=== PATIENT | male | born 2000 | race Caucasian/White ===

== ENCOUNTER → 2019-04-07 | Day surgery (SDC) | payer OTHER ==
[~2019-04-07] MED LIST: CYCLOPENTOLATE HCL 1% OPTH SOLN 2ML BTL ONE; FENTANYL CITRATE/PF 100MCG/2 ML INJ ONE; FLUOXETINE HCL20 MG PO; KETAMINE HCL INJ 50 MG/ML 10 ML VIAL ONE; LIDOCAINE HCL 2% LOCAL INJ 5 ML SDV VIAL INJ ONE; LOSARTAN POTASS25 MG PO; MIDAZOLAM HCL 2 MG/2 ML VIAL ONE; PEPCID20 MG PO; PROPOFOL IV EMULSION 10 MG/ML 50 ML VIAL ONE
--- OUTSIDE RECORDS SUMMARY | 2019-04-07 13:14 | XMS REPORT ---
Author Author [facility] Address Unknown Phone Unavailable Care Team Providers Care Child Adolescent Psychiatrist Name Role Phone Unavailable Unavailable Payers Payer Name Policy Type Policy Number Effective Date Expiration Date Problems This patient has no known problems. Allergies, Adverse Reactions, Alerts Allergy Name Allergy Type Status Severity Reaction(s) Onset Date Inactive Date Treating Clinician Comments No Known Allergies DA Active U 2018-06-28 00:00:00 No Known Contrast Allergies DA Active U 2003-11-20 00:00:00 No Known Drug Allergies DA Active U 2003-11-20 00:00:00 No Known Food Allergies DA Active U 2003-11-20 00:00:00 No Known Other Allergies DA Active U 2003-11-20 00:00:00 No Known Drug Intolerances DA Active U 2001-12-23 00:00:00 Medications This patient has no known medications. Results Test Description Test Time Test Comments Text Results Atomic Results Result Comments BASIC METABOLIC PANEL 2019-03-13 21:55:00 SODIUM (test code=NA) 136 mmol/L 136-145 POTASSIUM (test code=K) 3.7 mmol/L 3.5-5.1 CHLORIDE (test code=CL) 99 mmol/L 101-109 CARBON DIOXIDE (test code=CO2) 24.9 mmol/L 21-32 ANION GAP (test code=GAP) 16 mmol/L 10-20 GLUCOSE (test code=GLU) 89 mg/dL 74-106 BLOOD UREA NITROGEN (test code=BUN) 10 mg/dL 3-21 GLOMERULAR FILTRATION RATE (test code=GFR) > 60 mL/min >=60 Estimated GFR by using Modified MDRD formula.Chronic kidney disease is defined as either kidney damageor GFR <60 mL/min/1.73 m2 for >3 months. CREATININE (test code=CREAT) 0.73 mg/dL 0.55-1.3 BUN/CREATININE RATIO (test code=BUN/CREA) 13.7 10-20 CALCIUM (test code=CA) 8.6 mg/dL 8.4-10.2 [id number] 21:55:00* Test Item Value Reference Range Comments TROPONIN-I (test code=TROPI) <0.015 ng/mL 0.00-0.056 BASIC METABOLIC [id number] 21:46:00* Test Item Value Reference Range Comments SODIUM (test code=NA) 136 mmol/L 136-145 POTASSIUM (test code=K) 3.7 mmol/L 3.5-5.1 CHLORIDE (test code=CL) 99 mmol/L 101-109 CARBON DIOXIDE (test code=CO2) 24.9 mmol/L 21-32 ANION GAP (test code=GAP) 16 mmol/L 10-20 GLUCOSE (test code=GLU) 89 mg/dL 74-106 BLOOD UREA NITROGEN (test code=BUN) 10 mg/dL 3-21 GLOMERULAR FILTRATION RATE (test code=GFR) > 60 mL/min >=60 Estimated GFR by using Modified MDRD formula.Chronic kidney disease is defined as either kidney damageor GFR <60 mL/min/1.73 m2 for >3 months. CREATININE (test code=CREAT) 0.73 mg/dL 0.55-1.3 BUN/CREATININE RATIO (test code=BUN/CREA) 13.7 10-20 CALCIUM (test code=CA) 8.6 mg/dL 8.4-10.2 [id number] 21:46:00* Test Item Value Reference Range Comments TROPONIN-I (test code=TROPI) ng/mL 0-0.045 CBC W/O [id number] 21:43:00* Test Item Value Reference Range Comments WHITE BLOOD CELL (test code=WBC) 7.4 K/mm3 4.5-12.5 RED BLOOD CELL (test code=RBC) 5.13 mill/mm3 4.0-5.8 HEMOGLOBIN (test code=HGB) 15.5 gram/dL 13.0-17.5 HEMATOCRIT (test code=HCT) 45.5 % 42.0-52.0 MEAN CELL VOLUME (test code=MCV) 88.7 fL 80-98 MEAN CELL HGB (test code=MCH) 30.2 picogram 27.0-33.0 MEAN CELL HGB CONCETRATION (test code=MCHC) 34.1 gram/dL 33.0-36.0 RED CELL DISTRIBUTION WIDTH (test code=RDW) 11.7 % 11.6-16.2 RED CELL DISTRIBUTION WIDTH SD (test code=RDW-SD) 38.7 fL 37.0-51.0 PLATELET COUNT (test code=PLT) 278 K/mm3 150-450 MEAN PLATELET VOLUME (test code=MPV) 9.0 fL 6.7-11.0 - XR CHEST 1 [id number] 21:38:00 Name: SEAN ARIAS [facility] : 2000 Age/S:18 /M [address] [facility] [place] Unit#:[id number] [place]: [place] [address] Phys: Vick Johnson MD Dis Date: PHONE #: [phone] Status: REG FAX #: [phone] Exam Date: 03/13/2019 Reason: Chest pain EXAMS: CPT CODE: [id number] XR CHEST 1 V [id number] REASON FOR EXAM: Chest pain EXAM ORDER DATE: 03/13/2019 9:10 PM Ordering Lucía: Vick Johnson MD PROCEDURE: - XR CHEST 1 V COMPARISON: FINDINGS: Portable AP frontal view of the chest obtained at 9:17 PM shows clear lungs without evidence of consolidation. There is no evidence of effusion. The heart size is within normal limits. Pulmonary vasculatures are unremarkable. IMPRESSION: Mild hyperinflated lungs at 2138 Reported and signed by: Bobby Camara M.D. CC: Vick Johnson MD Technologist: RENETTA ARMAS RT(R),RDMS,CT Trnscrpt Data: 03/13/2019 (2138) [id number] Orig Print D/T: S: 03/13/2019 (2140) PAGE 1 Signed Report URINALYSIS [id number] 20:25:00* Test Item Value Reference Range Comments UA COLOR (test code=COLU) YELLOW YELLOW UA APPEARANCE (test code=APPU) CLEAR CLEAR UA GLUCOSE DIPSTICK (test code=DGLUU) norm mg/dL NEGATIVE UA BILIRUBIN DIPSTICK (test code=BILU) NEGATIVE mg/dL NEGATIVE UA KETONE DIPSTICK (test code=KETU) neg mg/dL NEGATIVE UA SPECIFIC GRAVITY (test code=SGU) 1.025 1.001-1.035 UA BLOOD DIPSTICK (test code=SEA) 25 (1+) Joshua/uL NEGATIVE UA PH DIPSTICK (test code=TAYLOR) 6.0 5.0-8.0 UA PROTEIN DIPSTICK (test code=PROU) 15 (TRACE) mg/dL Neg-15 UA UROBILINIOGEN DIPSTICK (test code=URO) 1 mg/dL 0.0-0.2 UA NITRITE DIPSTICK (test code=JORDIN) NEGATIVE NEGATIVE UA LEUKOCYTE ESTERASE DIPSTICK (test code=LEUU) 25 Jeremiah/uL (Trace) uL NEGATIVE UA WBC (test code=WBCU) 11-20 per HPF 0-5 UA RBC (test code=RBCU) 3-5 per HPF 0-5 UA EPITHELIAL CELLS (test code=EPIU) Rare (0-1/hpf) per HPF Few UA BACTERIA (test code=BACU) FEW per HPF NONE Urine Source? Clean CatchDRUGS OF ABUSE SCREEN [id number] 20:25:00* Test Item Value Reference Range Comments URN COCAINE (test code=COCAURN) NEGATIVE NEGATIVE URN CANNABINOIDS (test code=CANNABURN) NEGATIVE NEGATIVE URN AMPHETAMINE (test code=AMPHETURN) NEGATIVE NEGATIVE URN BARBITURATE (test code=BARBITURN) NEGATIVE NEGATIVE URN BENZODIAZEPINE (test code=BENZOURN) POSITIVE NEGATIVE URN OPIATES (test code=OPIATURN) NEGATIVE NEGATIVE URN PHENCYCLIDINE (PCP) (test code=PHENCURN) NEGATIVE NEGATIVE Urine Source? Clean CatchURINALYSIS [id number] 20:21:00* Test Item Value Reference Range Comments UA COLOR (test code=COLU) YELLOW UA APPEARANCE (test code=APPU) CLEAR UA GLUCOSE DIPSTICK (test code=DGLUU) mg/dL NEGATIVE UA BILIRUBIN DIPSTICK (test code=BILU) mg/dL NEGATIVE UA KETONE DIPSTICK (test code=KETU) mg/dL NEGATIVE UA SPECIFIC GRAVITY (test code=SGU) 1.001-1.035 UA BLOOD DIPSTICK (test code=SEA) Joshua/uL NEGATIVE UA PH DIPSTICK (test code=TAYLOR) 5.0-8.0 UA PROTEIN DIPSTICK (test code=PROU) mg/dL Neg-15 UA UROBILINIOGEN DIPSTICK (test code=URO) mg/dL 0.0-0.2 UA NITRITE DIPSTICK (test code=JORDIN) NEGATIVE UA LEUKOCYTE ESTERASE DIPSTICK (test code=LEUU) uL NEGATIVE UA WBC (test code=WBCU) per HPF 0-5 UA RBC (test code=RBCU) per HPF 0-5 UA EPITHELIAL CELLS (test code=EPIU) per HPF Few UA BACTERIA (test code=BACU) per HPF NONE Urine Source? Clean CatchDRUGS OF ABUSE SCREEN [id number] 20:21:00* Test Item Value Reference Range Comments URN COCAINE (test code=COCAURN) NEGATIVE NEGATIVE URN CANNABINOIDS (test code=CANNABURN) NEGATIVE NEGATIVE URN AMPHETAMINE (test code=AMPHETURN) NEGATIVE NEGATIVE URN BARBITURATE (test code=BARBITURN) NEGATIVE NEGATIVE URN BENZODIAZEPINE (test code=BENZOURN) POSITIVE NEGATIVE URN OPIATES (test code=OPIATURN) NEGATIVE NEGATIVE URN PHENCYCLIDINE (PCP) (test code=PHENCURN) NEGATIVE NEGATIVE Urine Source? Clean CatchBASIC METABOLIC [id number] 20:21:00* Test Item Value Reference Range Comments SODIUM (test code=NA) 138 mmol/L 136-145 POTASSIUM (test code=K) 3.9 mmol/L 3.5-5.1 CHLORIDE (test code=CL) 101 mmol/L 101-109 CARBON DIOXIDE (test code=CO2) 28.2 mmol/L 21-32 ANION GAP (test code=GAP) 13 mmol/L 10-20 GLUCOSE (test code=GLU) 97 mg/dL 74-106 BLOOD UREA NITROGEN (test code=BUN) 13 mg/dL 3-21 GLOMERULAR FILTRATION RATE (test code=GFR) > 60 mL/min >=60 Estimated GFR by using Modified MDRD formula.Chronic kidney disease is defined as either kidney damageor GFR <60 mL/min/1.73 m2 for >3 months. CREATININE (test code=CREAT) 0.78 mg/dL 0.55-1.3 BUN/CREATININE RATIO (test code=BUN/CREA) 16.7 10-20 CALCIUM (test code=CA) 8.4 mg/dL 8.4-10.2 CBC W/AUTO [id number] 20:08:00* Test Item Value Reference Range Comments WHITE BLOOD CELL (test code=WBC) 8.5 K/mm3 4.5-12.5 RED BLOOD CELL (test code=RBC) 5.72 mill/mm3 4.0-5.8 HEMOGLOBIN (test code=HGB) 17.4 gram/dL 13.0-17.5 HEMATOCRIT (test code=HCT) 51.1 % 42.0-52.0 MEAN CELL VOLUME (test code=MCV) 89.3 fL 80-98 MEAN CELL HGB (test code=MCH) 30.4 picogram 27.0-33.0 MEAN CELL HGB CONCETRATION (test code=MCHC) 34.1 gram/dL 33.0-36.0 RED CELL DISTRIBUTION WIDTH (test code=RDW) 11.8 % 11.6-16.2 RED CELL DISTRIBUTION WIDTH SD (test code=RDW-SD) 39.0 fL 37.0-51.0 PLATELET COUNT (test code=PLT) 288 K/mm3 150-450 MEAN PLATELET VOLUME (test code=MPV) 8.8 fL 6.7-11.0 NEUTROPHIL % (test code=NT%) 69.1 % 39.0-69.0 LYMPHOCYTE % (test code=LY%) 17.3 % 25.0-55.0 MONOCYTE % (test code=MO%) 9.5 % 0.0-10.0 EOSINOPHIL % (test code=EO%) 3.5 % 0.0-5.0 BASOPHIL % (test code=BA%) 0.4 % 0.0-1.0 NEUTROPHIL # (test code=NT#) 5.86 K/mm3 1.8-7.7 LYMPHOCYTE # (test code=LY#) 1.47 K/mm3 1.0-5.0 MONOCYTE # (test code=MO#) 0.81 K/mm3 0-0.8 EOSINOPHIL # (test code=EO#) 0.30 K/mm3 0.0-0.5 BASOPHIL # (test code=BA#) 0.03 K/mm3 0.0-0.2 MANUAL DIFF REQUIRED (test code=MDIFF) NO
--- OUTSIDE RECORDS SUMMARY | 2019-04-07 13:14 | XMS REPORT | Summary of Care ---
Author Author [facility] Organization [facility] Address Unknown Phone Unavailable Encounter HQ Encntr_alimarcus(FIN) [id number] Date(s): 07/10/17 - 07/10/17 [facility] [address] [place] [address]- Discharge Disposition: Home or Self Care Attending Physician: Jerel Hutchins MD Referring Physician: Jerel Hutchins MD Vital Signs No data available for this section Problem List No data available for this section Allergies, Adverse Reactions, Alerts No data available for this section Medications No data available for this section Results No data available for this section Immunizations No data available for this section Procedures No data available for this section Social History No data available for this section Assessment and Plan No data available for this section
--- OUTSIDE RECORDS SUMMARY | 2019-04-07 13:14 | XMS REPORT | Continuity of Care Document ---
Author Author [facility] [employer] Address Unknown Phone Unavailable Care Team Providers Care Field Laborer Name Role Phone [employer] Unavailable Unavailable Problems Problem Status Onset Date Classification Date Reported Comments Source DX: R10.13=EPIGASTRIC PAIN Active 07/03/2017 [facility] Medications No Data Provided for This Section Allergies, Adverse Reactions, Alerts No Known Medication Allergies Immunizations No Data Provided for This Section Results No Data Provided for This Section Pathology Reports No Data Provided for This Section Diagnostic Reports Report Value Date Source Abdomen complete US Patient Name: SEAN ARIAS : 2000; Age: 16 years y/o Male MR: [id number] Study: Abdomen complete US 07/10/2017 9:26 AM SUPPLY CHAIN TECHNICIAN Ordering Physician: Jerel Hutchins MD Clinical Indication: - R10.13 Epigastric pain; Comparison: None TECHNIQUE: Grayscale and limited color sonographic evaluation of the abdomen was performed with standard technique. FINDINGS: LIVER: The visualized liver shows normal contour, size, and morphology with normal parenchymal echo texture. BILE DUCTS: The intrahepatic and extrahepatic bile ducts are not dilated with the common bile duct measuring 2.5 mm. The distal common bile duct is not well seen. GALLBLADDER: There are no gallstones, gallbladder sludge, pericholecystic fluid or wall thickening. PANCREAS: The visualized pancreas appears unremarkable.. SPLEEN: The spleen is unremarkable and measures 8 x 3.5 x 4 cm. KIDNEY: The right kidney measures 10.4 x 4 x 4.5 cm. The left kidney measures 10.5 x 4.6 x 4.3 cm. No pelvocaliectasis, nephrolithiasis or renal mass lesion identified bilaterally. AORTA AND INFERIOR VENA CAVA: Visualized portions appear unremarkable. ASCITES: There is no abdominal ascites. IMPRESSION: No significant findings. SL: [id number] 07/10/2017 [facility] Clinical Indication: - R10.13 Epigastric pain; Comparison: Right upper quadrant ultrasound same date TECHNIQUE: Hepatobiliary scan is performed using 6.5 mCi of Tc-99m Choletec. 1 mcg of CCK administered. The tracers were administered via left antecubital fossa IV. FINDINGS: There is prompt hepatic uptake and excretion with progression of the radiotracer through a non dilated biliary tree and into small bowel. Gallbladder filling is first noted at 15 minutes past radiotracer injection. After Cholecystokinin infusion the gallbladder ejection fraction is noted to be 94%. (GB ejection fraction - normal greater than 50%, indeterminate 35-50%, abnormal <35%) Technologist Comment: No pain reported during CCK administration IMPRESSION: 1. Normal hepatobiliary scan and gallbladder ejection fraction. SL: [id number] 07/10/2017 [facility] Consultation Notes No Data Provided for This Section Discharge Summaries No Data Provided for This Section History and Physicals No Data Provided for This Section Vital Signs No Data Provided for This Section Encounters Location Location Details Encounter Type Encounter Number Reason For Visit Attending Provider ADM Date DC Date Status Source [facility] [id number] Jerel Hutchins 07/10/2017 07/11/2017 [facility] Procedures No Data Provided for This Section Assessment and Plan No Data Provided for This Section Plan of Care No Data Provided for This Section Social History Social History Date Source No data available for this section 07/11/2017 [facility] Family History No Data Provided for This Section Advance Directives No Data Provided for This Section Functional Status No Data Provided for This Section
[2019-04-07 15:45] VITALS: BP 126/76
--- NOTE | 2019-04-07 18:05 | Operative Report ---
DATE OF PROCEDURE: 04/07/2019 SURGEON: Jose Goodwin MD PROCEDURE: EGD with biopsies. INDICATIONS FOR EGD: Upper abdominal pain, acid reflux. MEDICATIONS: The patient was done under MAC, please see anesthesiologist's note. PROCEDURE IN DETAIL: With the patient in left lateral decubitus position, a flexible fiberoptic Olympus gastroscope was introduced into the esophagus under direct visualization without any difficulty. There was some patchy erythema noted in distal esophagus. The scope was then advanced with ease into the stomach and the mucosa overlying the antrum and the body revealed some patchy intense erythema and mild to moderate edema, and biopsies were obtained and sent to stain for H. pylori. The pylorus was of normal contour and shape, it was intubated with ease and the scope was advanced all the way to the second portion of the duodenum. Biopsies were obtained from the second portion and duodenal bulb to rule out sprue. The scope was then withdrawn back into the stomach and retroflexed, mucosa overlying the fundus and the cardia appeared to be within normal limits. The scope was then straightened out, it was subsequently withdrawn, and the patient tolerated the procedure well. IMPRESSION: 1. Distal esophagitis. 2. Gastritis, biopsied, biopsies sent to stain for Helicobacter pylori. 3. Rule out sprue. PLAN: Follow up histology. Initiate Protonix 40 mg one p.o. q.a.m. before meals. Jose Goodwin MD [facility] [place] /[id number] cc: Mahad Ybarra III, MD
== END | disposition home or self-care (01) ==
LOC: OR 13:11
PROVIDERS: ATTEND Internal Medicine Gastroenterology
DX: K29.70 Gastritis, unspecified, without bleeding (principal); K29.80 Duodenitis without bleeding; K20.9 Esophagitis, unspecified; K21.9 Gastro-esophageal reflux disease without esophagitis; I10 Essential (primary) hypertension; F32.9 Major depressive disorder, single episode, unspecified; F17.290 Nicotine dependence, other tobacco product, uncomplicated
CPT/HCPCS: 43239; J2001; J2250; J3010